=== PATIENT | male | born 1965 | race Two or more races ===

== ENCOUNTER 2019-10-27 03:50 | Emergency (ER) | payer MEDICAID ==
[~2019-10-27] VITALS: Ht 182.9 cm; Wt 121.2 kg
[2019-10-27 03:59] VITALS: BP 159/94
[2019-10-27] MEDS ORDERED: IBUPROFEN 600 MG TABLET PO ONE (04:00)
[2019-10-27] MEDS ORDERED: LIDOCAINE-MPF 1%, 5ML INFIL ONE (04:00)
--- NOTE | 2019-10-27 04:00 | NUR ---
Patient PANCHITO ham from [facility]. Patient is staying there from out of town. He states he touched the shower glass to open the door and it shattered, causing lacerations. Lac noted to left index finger, right thumb, and right second toe. Patient is in NAD. Respirations even and unlabored.
[2019-10-27] MEDS ORDERED: LIDOCAINE-MPF 1%, 5ML ONE (04:15)
[2019-10-27] MEDS ORDERED: PLEASE ENTER ALLERGIES MC SCH (04:30)
[2019-10-27] MEDS ORDERED: NEOSPORIN OINT. PKT 1 PACKET ONE (04:50)
[2019-10-27] MEDS ORDERED: IBUPROFEN 600 MG TABLET ONE (04:56)
[2019-10-27] MEDS ORDERED: DIPH,PERTUSS(ACELL),TET VAC/PF 0.5 ML IM-VACC ONE ×2 (04:56→05:00)
== END 2019-10-27 05:04 | disposition home or self-care (01) ==
LOC: ED 04:20
DX: S61.211A Laceration without foreign body of left index finger without damage to nail, initial encounter (principal); S91.114A Laceration without foreign body of right lesser toe(s) without damage to nail, initial encounter; S50.811A Abrasion of right forearm, initial encounter; S60.512A Abrasion of left hand, initial encounter; W25.XXXA Contact with sharp glass, initial encounter; Y93.89 Activity, other specified; Y92.009 Unspecified place in unspecified non-institutional (private) residence as the place of occurrence of the external cause; Y99.8 Other external cause status
CPT/HCPCS: 12041; 90471; 90715; 99285